=== PATIENT | female | born 1990 | race Caucasian/White ===

== ENCOUNTER 2016-07-07 16:39 | Emergency (ER) | payer MEDICAID ==
[~2016-07-07] VITALS: Ht 144.8 cm; Wt 58.0 kg
[~2016-07-07 16:39] MED LIST: CYCL-36 PO; DARV PO; NAPR550 PO; SULF-154 PO
[2016-07-07 16:41] VITALS: BP 102/68; PULSE 103; RESP 18; TEMP 98.3; O2SAT 97
[2016-07-07] MEDS ORDERED: PROPARACAINE HCL 0.5% OPHT SOLN 15 ML BTL RIGHT EYE ONE (17:00)
[2016-07-07] MEDS ORDERED: ERYTOIN10 RIGHT EYE (17:27)
[2016-07-07] MEDS ORDERED: AUGM875T PO (17:27)
[2016-07-07] MEDS ORDERED: IBUP800T23 PO (17:27)
[2016-07-07] MEDS ORDERED: AMOXICILLIN/CLAVULANATE K 875 MG TAB PO ONE (17:30)
[2016-07-07] MEDS ORDERED: ERYTHROMYCIN 0.5% OPTH OINT 3.5 GM TUBO RIGHT EYE ONE (17:30)
--- NOTE | 2016-07-07 17:38 | PD ---
HPI Chief Complaint: Eye Problems/Injury Time Seen by Provider: 17:00 Travel History International Travel<30 days: No Contact w/Intl Traveler<30days: No Traveled to known affect area: No History of Present Illness HPI Patient is a 26-year-old female presenting to the emergency room for evaluation of right eye pain. Patient states her kitten scratched her this morning. Over the course of the day her eye has gotten more irritated and painful. The kitten is not up-to-date with vaccinations. Patient denies any pain with eye movement but reports photophobia, tearing. PFSH Past Medical History Medical History: Denies Significant Hx Tetanus Vaccination: < 5 Years ?: Unknown LMP: 05/28/16 : 1 Para: 1 Past Surgical History Section: Yes (May 2009) Social History Alcohol Use: Yes (rare) Tobacco Use: No Substance Use: No Allergies-Medications (Allergen,Severity, Reaction): Coded Allergies: No Known Allergies (Verified , 07/07/16) Reported Meds & Prescriptions Reported Meds & Active Scripts Active Septra Ds (Trimethoprim/Sulfamethoxazole) Tab 1 Tab PO BID 10 Days Darvocet-N 100 (Propoxyphene Napsylate/Acetam) Tab 1 Tab PO Q6HPRN FOR PAIN Flexeril (Cyclobenzaprine HCl) 10 Mg Tab 5-10 Mg PO TIDPRN FOR MUSCLE SPASM Anaprox Ds (Naproxen Sodium) 550 Mg Tab 1 Tab PO BIDPRN Review of Systems Except as stated in HPI: all other systems reviewed are Neg General / Constitutional: No: Fever Eyes: Positive: Photophobia, Foreign Body Sensation, Tearing, No: Blurred Vision HENT: No: Headaches Physical Exam Narrative GENERAL: Well-nourished, well-developed patient. SKIN: Focused skin assessment warm/dry. HEAD: Normocephalic. EYES: No scleral icterus. No injection, clear drainage noted in right eye. Extraocular movements are intact. Pupils are equal, round, reactive. Fluorescein eye exam revealed an abrasion at the 7 o'clock position to the iris in the right eye. NECK: Supple, trachea midline. No JVD or lymphadenopathy. CARDIOVASCULAR: Regular rate and rhythm without murmurs, gallops, or rubs. RESPIRATORY: Breath sounds equal bilaterally. No accessory muscle use. GASTROINTESTINAL: Abdomen soft, non-tender, nondistended. MUSCULOSKELETAL: No cyanosis, or edema. BACK: Nontender without obvious deformity. No CVA tenderness. Data Data Last Documented VS Vital Signs Date Time Temp Pulse Resp B/P Pulse Ox O2 Delivery O2 Flow Rate FiO2 07/07/16 16:41 98.3 103 18 102/68 97 Orders Proparacaine 0.5% Opth Soln (Alcaine 0.5 (07/07/16 17:00) MDM Medical Decision Making Medical Screen Exam Complete: Yes Emergency Medical Condition: Yes Interpretation(s) Vital Signs Date Time Temp Pulse Resp B/P Pulse Ox O2 Delivery O2 Flow Rate FiO2 07/07/16 16:41 98.3 103 18 102/68 97 Differential Diagnosis Abrasion versus ulceration versus conjunctivitis versus iritis versus episcleritis versus other Narrative Course Patient is a 26-year-old female presenting to emergency evaluation of a scratch to her cornea that was sustained this morning from her cat. Patient has a corneal abrasion, treatment plan was discussed with my attending physician. She 'll be placed on Augmentin as well as erythromycin ointment. Visual acuity is 20/50 in the right eye, 20/20 in the left eye after proparacaine was administered. Patient is to follow-up with ophthalmology. She is advised strongly to return to emergency department for any new or worsening symptoms or if she was unable to be seen by a specialist. Patient verbalized understanding of these instructions. First dose of antibiotics were given the emergency department. 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 Patient Instructions: Corneal Abrasion (ED), General Instructions Additional Instructions: Follow-up with ophthalmology in 1 day Use medications as directed, complete full course of antibiotic's as prescribed Return to emergency department immediately for any new or worsening symptoms or if unable to be seen by a specialist Med/Other Pt SpecificInfo: Prescription(s) given Scripts Erythromycin Opth Oint 5 Mg/Gm Oint1 Applic RIGHT EYE QID #1 TUBE Ref 0 Prov:Cami Faust 07/07/16 Ibuprofen 800 Mg Qkb568 Mg PO Q6HR PRN (PAIN) #40 TAB Ref 0 Prov:Cami Faust 07/07/16 Amoxicillin-Clavulanate (Augmentin)875-125 mg Qsd703 Mg PO BID 10 Days Ref 0 not for use in CrCl <30 ml/min. Prov:Cami Faust 07/07/16 Disposition: 01 DISCHARGE HOME Condition: Stable Cami Faust Jul 07, 2016 17:38
== END 2016-07-07 17:51 | disposition home or self-care (01) ==
LOC: PHEFT 16:39
DX: S05.01XA Injury of conjunctiva and corneal abrasion without foreign body, right eye, initial encounter (principal); W55.03XA Scratched by cat, initial encounter
CPT/HCPCS: 99283

== ENCOUNTER 2016-08-03 11:46 | Emergency (ER) | payer MEDICAID ==
[~2016-08-03] VITALS: Ht 144.8 cm; Wt 54.7 kg
[~2016-08-03 11:46] MED LIST changes: +AUGM875T PO; +ERYTOIN10 RIGHT EYE; +IBUP800T23 PO
[2016-08-03 11:49] VITALS: BP 104/75; PULSE 98; RESP 16; TEMP 98.5; O2SAT 99
[2016-08-03 12:31] LABS: AUTOMATED NEUTROPHIL # 5.9 TH/MM3 (1.8-7.7); BASOPHIL % 0.6 % (0.0-2.0); EOSINOPHIL # 0.1 TH/MM3 (0-0.4); EOSINOPHIL % 1.8 % (0.0-4.0); HEMO FLAGS DIFF FINAL; LYMPH % 19.1 % (9.0-44.0); LYMPHOCYTE # 1.5 TH/MM3 (1.0-4.8); MEAN CELL VOLUME 76.9 FL (80.0-100.0); MEAN CORPUSCULAR HEMOGLOBIN 25.7 PG (27.0-34.0); MEAN CORPUSCULAR HGB CONC 33.4 % (32.0-36.0); MONO % 4.4 % (0.0-8.0); NEUT % 74.1 % (16.0-70.0); PLATELET COUNT 294 TH/MM3 (150-450); RED BLOOD COUNT 4.81 MIL/MM3 (4.00-5.30); RED CELL DISTRIBUTION WIDTH 12.7 % (11.6-17.2); WHITE BLOOD COUNT 7.8 TH/MM3 (4.0-11.0)
[2016-08-03] MEDS ORDERED: IOHEXOL 350 MG/ML 10 ML VIAL (for RAD DIAG) IV ONE (12:39)
[2016-08-03 12:43] LABS: CHLORIDE 103 MEQ/L (98-107); POTASSIUM 3.9 MEQ/L (3.5-5.1); SODIUM (NA) 140 MEQ/L (136-145)
[2016-08-03] MEDS ORDERED: MORPHINE SULFATE 4 MG/ML INJ IV PUSH ONE (12:45)
[2016-08-03 12:50] LABS: ANION GAP 8 MEQ/L (5-15); BICARBONATE 28.7 MEQ/L (21.0-32.0)
[2016-08-03 12:51] LABS: BLOOD UREA NITROGEN 6 MG/DL (7-18)
--- NOTE | 2016-08-03 12:52 | PD ---
HPI Chief Complaint: Eye Problems/Injury Time Seen by Provider: 11:55 Travel History International Travel<30 days: No Contact w/Intl Traveler<30days: No Traveled to known affect area: No History of Present Illness HPI This is a 26-year-old female with a history of IV drug use who presents to the emergency department with swelling of her left eye, constant, severe that started last evening and has worsened throughout the night to the point where she couldn't open her eyelid this morning. She's had yellow and green discharge from her eye. She denies any fevers or chills. She does have pain when she moves her eye. She feels like she can see normally but she has difficulty opening her eyelid. PFSH Past Medical History Medical History: Denies Significant Hx ?: Not LMP: LAST MONTH : 1 Para: 1 Tubal Ligation: Yes Past Surgical History Section: Yes (X4) Cholecystectomy: Yes Social History Alcohol Use: No Tobacco Use: No (former) Substance Use: No Allergies-Medications (Allergen,Severity, Reaction): Coded Allergies: No Known Allergies (Verified , 08/03/16) Reported Meds & Prescriptions Reported Meds & Active Scripts Active No Active Prescriptions or Reported Medications Review of Systems Except as stated in HPI: all other systems reviewed are Neg Physical Exam Narrative GENERAL:Well appearing, no acute distress SKIN: Focused skin assessment warm and dry. HEAD: Atraumatic. Normocephalic. EYES: 20/20 right eye acuity, 20/40 left eye acuity, Diffuse conjunctival injection of the left eye with chemosis, yellow discharge, pain with lateral gaze, fluoroscein exam with no uptake. ENT: Erythema, warmth and swelling involving the left eyelid extending down the left maxillary prominence with swelling NECK: Trachea midline. CARDIOVASCULAR: Regular rate and rhythm. No murmur appreciated. RESPIRATORY: Clear to auscultation. Breath sounds equal bilaterally. GASTROINTESTINAL: Abdomen soft, non-tender, nondistended. MUSCULOSKELETAL: No obvious deformities. NEUROLOGICAL: Awake and alert. No obvious cranial nerve deficits. Moving all extremities. PSYCHIATRIC: Appropriate mood and affect; insight and judgment normal. Data Data Last Documented VS Vital Signs Date Time Temp Pulse Resp B/P Pulse Ox O2 Delivery O2 Flow Rate FiO2 08/03/16 13:09 16 08/03/16 12:53 93 92/62 97 Room Air 08/03/16 11:49 98.5 Orders Complete Blood Count With Diff (08/03/16 12:00) Comprehensive Metabolic Panel (08/03/16 12:00) ^ Insert Iv (08/03/16 12:00) Ct Facial Bones W Iv Contrast (08/03/16 ) Blood Culture (08/03/16 12:08) Iohexol 350 Inj (Omnipaque 350 Inj) (08/03/16 12:39) Morphine Inj (Morphine Inj) (08/03/16 12:45) Ceftriaxone Inj (Rocephin Inj) (08/03/16 13:45) Clindamycin Inj (Cleocin Inj) (08/03/16 13:45) Labs Laboratory Tests Test 08/03/16 12:20 White Blood Count 7.8 TH/MM3 Red Blood Count 4.81 MIL/MM3 Hemoglobin 12.4 GM/DL Hematocrit 37.0 % Mean Corpuscular Volume 76.9 FL Mean Corpuscular Hemoglobin 25.7 PG Mean Corpuscular Hemoglobin 33.4 % Concent Red Cell Distribution Width 12.7 % Platelet Count 294 TH/MM3 Mean Platelet Volume 6.2 FL Neutrophils (%) (Auto) 74.1 % Lymphocytes (%) (Auto) 19.1 % Monocytes (%) (Auto) 4.4 % Eosinophils (%) (Auto) 1.8 % Basophils (%) (Auto) 0.6 % Neutrophils # (Auto) 5.9 TH/MM3 Lymphocytes # (Auto) 1.5 TH/MM3 Monocytes # (Auto) 0.3 TH/MM3 Eosinophils # (Auto) 0.1 TH/MM3 Basophils # (Auto) 0.0 TH/MM3 CBC Comment DIFF FINAL Differential Comment Sodium Level 140 MEQ/L Potassium Level 3.9 MEQ/L Chloride Level 103 MEQ/L Carbon Dioxide Level 28.7 MEQ/L Anion Gap 8 MEQ/L Blood Urea Nitrogen 6 MG/DL Creatinine 0.77 MG/DL Estimat Glomerular Filtration 90 ML/MIN Rate Random Glucose 99 MG/DL Calcium Level 9.4 MG/DL Total Bilirubin 1.1 MG/DL Aspartate Amino Transf 41 U/L (AST/SGOT) Alanine Aminotransferase 49 U/L (ALT/SGPT) Alkaline Phosphatase 187 U/L Total Protein 8.6 GM/DL Albumin 3.4 GM/DL MDM Medical Decision Making Medical Screen Exam Complete: Yes Emergency Medical Condition: Yes Interpretation(s) afebrile, mild tachycardia, normotensive no leukocytosis electrolytes are reassuring Last [address] 08/03/16 0000 Signed Impressions: Service Date/Time: Wednesday, August 03, 2016 12:25 - CONCLUSION: There is left periorbital soft tissue swelling with inflammatory change. Findings are suggestive of a preseptal cellulitis. No retroconal abnormality is seen. No radiopaque foreign body is identified. Elias Cabral MD Differential Diagnosis Viral conjunctivitis, bacterial conjunctivitis, orbital cellulitis, preseptal cellulitis, corneal abrasion, corneal ulcer Narrative Course This is a 26-year-old female who presents to the emergency department with swelling of the left eyelid and pain in her left eye. Her physical exam findings were concerning for orbital cellulitis. Labs are obtained and a CT scan was ordered which demonstrates only preseptal cellulitis. She has a copious amount of discharge on exam of the eye. Fluoroscein exam was performed and I don't appreciate any uptake to suggest an ulcer or an abrasion. I spoke to the clinical office technician on-call who recommended empiric treatment for possible gonococcal conjunctivitis along with topical antibiotic therapy and oral antibiotic therapy for preseptal cellulitis. She agreed to follow-up with the patient in 2 days. I asked the patient to ensure that she gets rechecked in 2 days either here or in the clinical office technician office. Patient will be discharged home on antibiotic therapy. Diagnosis Primary Impression: Conjunctivitis Qualified Code: H10.32 - Acute bacterial conjunctivitis of left eye Additional Impression: Preseptal cellulitis of left eye Referrals: Argenis Sandra MD Additional Instructions: If you develop worsening swelling of your left face, worsening pain of your eye , or worsening vision return to the emergency department immediately. Call Argenis Sandra the clinical office technician tomorrow morning at 8 AM for an appointment. If for some reason you are unable to get an appointment with the clinical office technician, follow up in the emergency room in 48 hours to be rechecked. Med/Other Pt SpecificInfo: Prescription(s) given Scripts Tramadol 50 Mg Tab50 Mg PO Q6H PRN (PAIN) #10 TAB Prov:Lizbeth Jasmine MD 08/03/16 Clindamycin 300 Mg [id number] Mg PO TID 10 Days Ref 0 Prov:Lizbeth Jasmine MD 08/03/16 Erythromycin Opth Oint 5 Mg/Gm Oint1 Applic LEFT EYE QID #1 TUBE Ref 0 Prov:Lizbeth Jasmine MD 08/03/16 Disposition: 01 DISCHARGE HOME Condition: Stable Lizbeth Jasmine MD August 03, 2016 12:52
[2016-08-03 12:53] VITALS: BP 92/62; PULSE 93; RESP 18; O2SAT 97
[2016-08-03 12:53] LABS: ALT (GPT) 49 U/L (10-53); AST (GOT) 41 U/L (15-37); GLOMERULAR FILTRATION RATE 90 ML/MIN (>89)
[2016-08-03 12:55] LABS: TOTAL BILIRUBIN ADULT 1.1 MG/DL (0.2-1.0)
--- NOTE | 2016-08-03 12:55 | RADHPO ---
EXAM DATE/TIME: 08/03/2016 12:25 [facility] COMPARISON: No previous studies available for comparison. INDICATIONS : Patient woke up last night with swollen left eye and cheek area. Evaluate for cellulitis. IV CONTRAST: 75 cc Omnipaque 350 (iohexol) IV RADIATION DOSE: 29.96 CTDIvol (mGy) MEDICAL HISTORY : None SURGICAL HISTORY : section. Cholecystectomy.Tubal ligation. ENCOUNTER: Initial ACUITY: 2 days PAIN SCALE: 6/10 LOCATION: Left facial TECHNIQUE: Volumetric scanning of the facial bones was performed. Using automated exposure control and adjustme nt of the mA and/or kV according to patient size, radiation dose was kept as low as reasonably achiev able to obtain optimal diagnostic quality images. FINDINGS: There is left periorbital soft tissue swelling with increased enhancement and a small amount of fluid and air in the pre-septal region. No abscess is visualized. No inflammatory changes extend into the retroconal region. Extraocular muscles are symmetric without thickening. Lacrimal glands are also sym metric without enlargement. Both globes have a symmetric appearance and the lenses are normally locat ed. No foreign body is visualized. There is mild mucoperiosteal thickening within the maxillary and short mucous retention cyst in the r ight maxillary antrum. Remaining visualized surrounding structures demonstrate no acute finding. CONCLUSION: There is left periorbital soft tissue swelling with inflammatory change. Findings are suggestive of a preseptal cellulitis. No retroconal abnormality is seen. No radiopaque foreign body is identified. Elias Cabral MD on August 03, 2016 at 12:45 Board Certified Radiologist. This report was verified electronically.
[2016-08-03 12:56] LABS: ALKALINE PHOSPHATASE 187 U/L (45-117)
[2016-08-03] MEDS ORDERED: CLINDAMYCIN INJ 600 MG in SODIUM CHLORIDE 0.9% INJ 100 ML IV ONE (13:45)
[2016-08-03] MEDS ORDERED: cefTRIAXone INJ 1,000 MG in SODIUM CHLORIDE 0.9% INJ 100 ML IV ONE (13:45)
[2016-08-03] MEDS ORDERED: ERYTOIN10 LEFT EYE (13:53)
[2016-08-03] MEDS ORDERED: TRAM50TA PO (13:53)
[2016-08-03] MEDS ORDERED: CLIN1CAP6 PO (13:53)
[2016-08-03 14:17] VITALS: BP 95/59; PULSE 83; RESP 16; O2SAT 97
[2016-08-03 15:15] VITALS: BP 96/60; PULSE 81; RESP 16; O2SAT 97
== END 2016-08-03 15:45 | disposition home or self-care (01) ==
LOC: PHED 11:46
DX: H10.32 Unspecified acute conjunctivitis, left eye (principal); R00.0 Tachycardia, unspecified; Z87.891 Personal history of nicotine dependence
CPT/HCPCS: 70487; 80053; 85025; 87040; 87205; 96365; 96367; 96375; 99285; J0696; J2270; Q9967; 87076